=== PATIENT | female | born 1955 | race Caucasian/White ===

== ENCOUNTER 2021-07-31 22:33 | Emergency (ER) | payer MEDICARE, MEDICAID ==
[~2021-07-31] VITALS: Ht 172.7 cm; Wt 75.0 kg
[2021-07-31] MEDS ORDERED: morphine INJ 10 MG/ML 1ML (SYR OR VIAL) IVP STA (23:12)
[2021-07-31] MEDS ORDERED: ONDANSETRON 4 MG/2 ML (SDV) Z0FRAN IVP ONE (23:15)
--- NOTE | 2021-07-31 23:17 | ED Upper Extremity ---
General Stated Complaint: FALL/LEFT WRIST INJURY Source: patient, family Exam Limitations: no limitations History of Present Illness Date Seen by Provider: July 31, 2021 Time Seen by Provider: 23:05 Initial Comments Patient is a 65-year-old female who presents to the emergency department today with a chief complaint of left wrist injury. Patient was at a wedding and was trying to get between a couple of people who were arguing. She states she fell backwards on an outstretched arm injuring her wrist. She states it was immediately "packed in ice". She has not taken any medications for the pain. She did not injure herself anywhere else during the fall. Did not hit her head, did not have a loss of consciousness. She complains of significant pain to the left wrist. SHe is nauseated. last oral intake about 1 hour ago - drank a beer. All other review of systems reviewed and negative except as stated. Onset: just prior to arrival Severity: severe Pain/Injury Location: left wrist Method of Injury: fell Modifying Factors: Worse With Movement Allergies and Home Medications Allergies Coded Allergies: codeine (Verified Allergy, Unknown, 07/31/21) metronidazole (Verified Allergy, Unknown, 07/31/21) Patient Home Medication List Home Medication List Reviewed: Yes Hydrocodone/Acetaminophen (Hydrocodone-Acetamin 5-325 mg) 5 Mg-325 Mg Tablet, 1 TAB PO Q6H PRN for PAIN-MODERATE (5-7) Prescribed by: MEDINA CORREA on 08/01/21 0020 Ondansetron (Ondansetron Odt) 4 Mg Tab.rapdis, 4 MG PO Q8H PRN for nausea Prescribed by: MEDINA CORREA on 08/01/21 0020 Review of Systems Constitutional: see HPI EENTM: no symptoms reported Respiratory: no symptoms reported Cardiovascular: no symptoms reported Gastrointestinal: no symptoms reported Genitourinary: no symptoms reported Musculoskeletal: joint pain (left wrist) Skin: no symptoms reported All Other Systems Reviewed Negative Unless Noted: Yes Physical Exam Vital Signs Capillary Refill : Height, Weight, BMI Height: '" Weight: lbs. oz. kg; BMI Method: General Appearance: WD/WN, mild distress HEENT: PERRL/EOMI Cardiovascular: regular rate, rhythm Respiratory: lungs clear, normal breath sounds, no respiratory distress, no accessory muscle use Shoulder: normal inspection, non-tender, no evidence of injury, normal ROM Elbow/Forearm: normal inspection, non-tender, no evidence of injury, normal ROM Wrist: Yes asymmetry, Yes bone tenderness, Yes deformity, Yes limited ROM, Yes pain, Yes soft tissue tenderness, Yes swelling Hand: normal inspection, no evidence of injury (rings removed) Neurologic/Tendon: normal sensation, normal motor functions Neurologic/Psychiatric: alert, normal mood/affect, oriented x 3 Skin: normal color, warm/dry Progress/Results/Core Measures Results/Orders My Orders Orders - MEDINA CORREA MD Ed Iv/Invasive Line Start (07/31/21 23:12) Wrist, Left, 3 Views Or More (07/31/21 23:12) Morphine Injection (Morphine Injection (07/31/21 23:12) Ondansetron Injection (Zofran Injectio (07/31/21 23:15) Rx-Hydrocodone/Apap 5-325 Mg (Rx-Vicodin (08/01/21 00:30) Morphine Injection (Morphine Injection (08/01/21 00:20) Promethazine Injection (Phenergan Injec (08/01/21 00:30) Ns (Ivpb) (Sodium Chloride 0.9%) (08/01/21 00:30) Medications Given in ED Current Medications Medications Dose Ordered Sig/Ramona Route Start Time Stop Time Status Last Admin Dose Admin Ondansetron HCl 4 mg ONCE ONCE IVP 07/31/21 23:15 07/31/21 23:16 DC 07/31/21 23:18 4 MG Promethazine HCl 12.5 mg ONCE ONCE IVP 08/01/21 00:30 08/01/21 00:31 DC 08/01/21 00:30 12.5 MG Sodium Chloride 250 ml @ 999 mls/hr Q16M ONCE IV 08/01/21 00:30 08/01/21 00:45 DC 08/01/21 00:29 999 MLS/HR Progress Progress Note : Time: 00:17 Progress Note patient placed in a volar OCL short arm splint. Given a sling. Instructed on ice packs and elevation. Pain medications for home. referral information for Dr Vasquez who is regional medical director. return precautions given. Diagnostic Imaging Diagonstic Imaging: Xray Plain Films/CT/US/NM/MRI: other (wrist) Comments interpreted by me. impacted distal radius fracture Departure Impression Primary Impression: Closed fracture of distal end of radius Qualified Codes: S52.502A - Unspecified fracture of the lower end of left radius, initial encounter for closed fracture Disposition: HOME, SELF-CARE Condition: Stable Departure-Patient Inst. Decision time for Depature: 00:18 Referrals: NO,LOCAL PHYSICIAN (PCP) Primary Care Physician RADHA VASQUEZ MD Patient Instructions: Wrist Fracture (DC) Add. Discharge Instructions: Keep the splint in place until you follow-up with orthopedics. Ice packs over the course of the next 24 to 48 hours frequently throughout the day over the fracture site. The left wrist elevated to help decrease swelling. Pain medications every 6 hours as needed. These medications can cause co nstipation. As long as you are taking the prescribed pain medicines you should be on a daily stool softener. You can also take [id number] ibuprofen 600 mg every 6 hours with food as needed for pain/inflammation and swelling. Please call Dr. Vasquez's office first thing Monday morning for a follow-up appointment this week. Return to the emergency department for any new, concerning or emergent complaints. Scripts Ondansetron (Ondansetron Odt) 4 Mg Tab.rapdis 4 MG PO Q8H PRN for nausea, #20 TAB Prov: MEDINA CORREA MD 08/01/21 Hydrocodone/Acetaminophen (Hydrocodone-Acetamin 5-325 mg) 5 Mg-325 Mg Tablet 1 TAB PO Q6H PRN for PAIN-MODERATE (5-7), #20 TAB Prov: MEDINA CORREA MD 08/01/21 Copy Copies To 1: RADHA VASQUEZ MD, KATHRYN M MD July 31, 2021 23:17
[2021-08-01] MEDS ORDERED: ACHD5005 PO (00:19)
[2021-08-01] MEDS ORDERED: ONDA4TAB11 PO (00:20)
[2021-08-01] MEDS ORDERED: morphine INJ 10 MG/ML 1ML (SYR OR VIAL) IVP STA (00:20)
[2021-08-01] MEDS ORDERED: PROMETHAZINE INJ 25 MG/ML (PHENERGAN) AMP IVP ONE (00:30)
[2021-08-01] MEDS ORDERED: NS (IVPB) 250 ML IV ONE (00:30)
[2021-08-01 01:07] VITALS: BP 124/81
--- NOTE | 2021-08-01 06:51 | Diagnostic Imaging Report ---
History: Fall on the left wrist and hand, left wrist pain TECHNIQUE: 3 views of the left wrist COMPARISON: None FINDINGS: There is a comminuted intra-articular fracture of the distal left radius with mild posterior angulation and displacement. There is a minimally displaced avulsion fracture at the tip of the ulnar stomach process. Alignment otherwise appears normal. There is soft tissue swelling about the left wrist. IMPRESSION: 1. Comminuted, mildly displaced and angulated intra-articular fracture of the distal left radius. 2. Minimally displaced fracture of the ulnar styloid process. Dictated by: Dictated on workstation # [id number]
== END 2021-08-01 01:22 | disposition home or self-care (01) ==
LOC: ER 22:37
DX: S52.572A Other intraarticular fracture of lower end of left radius, initial encounter for closed fracture (principal); S52.612A Displaced fracture of left ulna styloid process, initial encounter for closed fracture; W18.30XA Fall on same level, unspecified, initial encounter
CPT/HCPCS: 29125; 73110

== ENCOUNTER → 2021-08-04 | Outpatient (CLI) | payer MEDICARE, MEDICAID ==
[~2021-08-04] MED LIST: ACHD5005 PO; ONDA4TAB11 PO
== END ==
LOC: ORTHO 13:14
PROVIDERS: ATTEND Orthopaedic Surgery
DX: S52.502A Unspecified fracture of the lower end of left radius, initial encounter for closed fracture (principal); I10 Essential (primary) hypertension; E11.9 Type 2 diabetes mellitus without complications; X58.XXXA Exposure to other specified factors, initial encounter
CPT/HCPCS: 29075; G0463

== ENCOUNTER 2021-08-17 10:14 | Outpatient (CLI) | payer MEDICARE, MEDICAID ==
[~2021-08-17] VITALS: Ht 167.6 cm; Wt 74.4 kg
[~2021-08-17 10:14] MED LIST changes: -ASPI-999 PO; -CHOL200041 PO; -CRAN200C PO; -ESTR1TAB27 PO; -LISI20TA26 PO; -METF-397 PO; -OMEP40CA6 PO; -OXYC-556 PO; -PREN-98 PO
[2021-08-17] MEDS ORDERED: ESTR1TAB27 PO (12:50)
[2021-08-17] MEDS ORDERED: ASPI-999 PO (12:50)
[2021-08-17] MEDS ORDERED: LISI20TA26 PO (12:50)
[2021-08-17] MEDS ORDERED: PREN-98 PO (12:50)
[2021-08-17] MEDS ORDERED: OXYC-556 PO (12:50)
[2021-08-17] MEDS ORDERED: OMEP40CA6 PO (12:50)
[2021-08-17] MEDS ORDERED: CHOL200041 PO (12:50)
[2021-08-17] MEDS ORDERED: METF-397 PO (12:50)
[2021-08-17] MEDS ORDERED: CRAN200C PO (12:50)
== END 2021-08-17 13:30 | disposition home or self-care (01) ==
LOC: PREOP 10:14
PROVIDERS: ATTEND Orthopaedic Surgery
DX: Z01.818 Encounter for other preprocedural examination (principal)

== ENCOUNTER → 2021-08-17 | Outpatient (CLI) | payer MEDICARE, MEDICAID ==
[~2021-08-17] MED LIST changes: +ASPI-999 PO; +CHOL200041 PO; +CRAN200C PO; +ESTR1TAB27 PO; +LISI20TA26 PO; +METF-397 PO; +OMEP40CA6 PO; +OXYC-556 PO; +PREN-98 PO
--- NOTE | 2021-08-17 10:47 | Diagnostic Imaging Report ---
INDICATION: Left wrist injury. AP and lateral views of left wrist are obtained with comparison made study of earlier in the day. Subacute distal radial fracture is again identified with mild overriding of distal fracture fragments. This does extend into the distal radial articular surface with mild dorsal angulation of major distal radial fracture fragment. Mildly displaced ulnar styloid process fracture noted. No other significant change is seen. IMPRESSION: Mild overriding and angulation of comminuted intra-articular distal radial fracture with overlying fiberglass cast. Dictated by: Dictated on workstation # [id number]
--- NOTE | 2021-08-17 10:54 | Diagnostic Imaging Report ---
INDICATION: Left wrist fracture follow-up AP, oblique, and lateral views of the left wrist are obtained and compared to 07/31/2021. Comminuted distal radial intra-articular fracture appears in stable alignment. Ulnar styloid avulsion again noted. Overlying cast in place. IMPRESSION: Stable alignment of left wrist fractures with overlying cast in place. Dictated by: Dictated on workstation # [id number]
== END ==
LOC: ORTHO 09:00
PROVIDERS: ATTEND Orthopaedic Surgery
DX: Z47.89 Encounter for other orthopedic aftercare (principal); Z98.890 Other specified postprocedural states
CPT/HCPCS: 73100; 73110; G0463; 99213

== ENCOUNTER 2021-08-20 06:12 | Day surgery (SDC) | payer MEDICARE, MEDICAID ==
[~2021-08-20] VITALS: Ht 167 cm; Wt 74.4 kg
[2021-08-20] VITALS (11 sets, daily range): BP systolic 107–163; BP diastolic 59–106
[~2021-08-20 06:12] MED LIST changes: +ASPI-999 PO; +CHOL200041 PO; +CRAN200C PO; +ESTR1TAB27 PO; +LISI20TA26 PO; +METF-397 PO; +OMEP40CA6 PO; +OXYC-556 PO; +PREN-98 PO
[2021-08-20] MEDS ORDERED: ceFAZolin INJECTION 1,000 MG VIAL IV ONE (06:30)
[2021-08-20] MEDS ORDERED: BUPIVACAINE 0.25% 10 ML (SENSORCAINE) VIAL ONE (06:51)
[2021-08-20] MEDS: LACTATED RINGERS 1,000 ML IV PRN ×2 (07:00→08:34)
[2021-08-20] MEDS ORDERED: ONDANSETRON 4 MG/2 ML (SDV) Z0FRAN ONE (07:05)
[2021-08-20] MEDS ORDERED: LIDOCAINE PF 2% 5 ML (XYLOCAINE) VIAL ONE (07:05)
[2021-08-20] MEDS ORDERED: fentaNYL INJ 100 MCG/2 ML AMP ONE (07:05)
[2021-08-20] MEDS ORDERED: MIDAZOLAM 2 MG/2 ML (VERSED) VIAL ONE (07:05)
[2021-08-20] MEDS ORDERED: proPOfol 200 MG/20 ML (DIPRIVAN) VIAL IV ONE (07:05)
[2021-08-20] MEDS ORDERED: fentaNYL INJ 100 MCG/2 ML AMP IVP ONE (07:15)
--- NOTE | 2021-08-20 07:17 | Progress Note-Pre Operative ---
Pre-Operative Progress Note H&P Reviewed The H&P was reviewed, patient examined and no changes noted. Date Seen by Provider: Aug 20, 2021 Time Seen by Provider: 07:10 Date H&P Reviewed: Aug 20, 2021 Time H&P Reviewed: 07:10 Pre-Operative Diagnosis: Left Intraarticular Distal Radius Fracture RADHA LUONG MD Aug 20, 2021 07:17
[2021-08-20] MEDS ORDERED: SEVOFLURANE (ULTANE) 15 ML INHAL SOLN ONE ×4 (07:35→08:28)
[2021-08-20] MEDS ORDERED: HYDROmorphone 2 MG/ML VIAL (DILAUDID) ONE (08:15)
[2021-08-20] MEDS ORDERED: NEO/POLY/BAC (NEOSPORIN) OINT 15 GM TUBE ONE (08:36)
--- NOTE | 2021-08-20 09:02 | Operative Report - Ortho ---
Operative Report Surgeon (s)/Riprap Placing Supervisor (s) Surgeon RADHA LUONG MD Riprap Placing Supervisor n/a Pre-Operative Diagnosis Left Intraarticular Distal Radius Fracture Post-Operative Diagnosis same Operative Report Date of Procedure: Aug 20, 2021 Name of Procedure Performed: Open Reduction and Internal Fixation of Left Intraarticular Distal Radius Fracture Description & Findings After obtaining informed consent, the patient was taken to the operating room. General anesthesia was induced. Surgical timeout was taken. The left upper extremity was prepped and draped in the usual sterile fashion. Incision was made over the volar side of the wrist. Radial artery was identified and protected. Fascia was divided, retractors were placed, and the pronator was reflected. Fracture site was exposed. Fracture site was mobilized. Reduction maneuver was performed using traction, wrist flexion, and ulnar deviation. A [employer] distal radius plate was selected and position against the bone using C- arm. A nonlocking screw was placed in the slot of the plate. A nonlocking screw was then placed in the most distal row of the plate. Plate position and reduction were confirmed in the AP and lateral planes. An ulnar sided locking screw was placed in the distal row followed by the ulnar sided locking screw in the 2nd row. C-arm was once again utilized and noted to have good position of hardware with maintained reduction of fracture. 2 locking screws were then placed in the radial styloid position. 2 locking screws were placed in the diaphyseal portion of the plate. Images were obtained in the AP, and lateral and demonstrated adequate reduction of the fracture with reduction of the intrarticular segment, and appropriate position of the hardware. Final images were saved on the hard drive of the C-arm. Wound was irrigated with normal saline. Subcutaneous layer was closed with 3-0 vicryl. Skin was closed with 4-0 nylon. Wound was injected locally with marcaine. Arm was dressed with xeroform, 4x4s, webril, volar splint, and VINI wrap. Patient tolerated the procedure well and was stable to the recovery room. Anesthesia Type General Estimated Blood Loss Less than 25 mL Specimen(s) collected/removed None RADHA LUONG MD Aug 20, 2021 09:02
[2021-08-20] MEDS ORDERED: OXYC-556 PO (09:05)
[2021-08-20] MEDS ORDERED: morphine INJ 10 MG/ML 1ML (SYR OR VIAL) IVP ONE (09:15)
[2021-08-20] MEDS ORDERED: HYDROmorphone 2 MG/ML VIAL (DILAUDID) IV ONE (09:15)
[2021-08-20] MEDS ORDERED: ONDANSETRON 4 MG/2 ML (SDV) Z0FRAN IVP PRN (09:15)
--- NOTE | 2021-08-20 09:38 | Anesthesia-General Post-Op ---
General Patient Condition Mental Status/LOC: Same as Preop Cardiovascular: Satisfactory Nausea/Vomiting: Absent Respiratory: Satisfactory Pain: Controlled Complications: Absent Post Op Complications Complications None Follow Up Care/Instructions Patient Instructions None needed. Anesthesia/Patient Condition Patient Condition Patient is doing well in PACU, C/O Lt wrist pain which is to be expected -- not uncontrollable, stable vital signs, no apparent adverse anesthesia problems. No complications reported per nursing. RONNY LUONG DO Aug 20, 2021 09:38
[2021-08-20] MEDS ORDERED: oxyCODONE/APAP 10/325MG (PERCOCET 10) TABLET PO ONE ×2 (10:10→10:15)
== END 2021-08-20 11:25 | disposition home or self-care (01) ==
LOC: SDC 06:12
PROVIDERS: ATTEND Orthopaedic Surgery
DX: S52.572D Other intraarticular fracture of lower end of left radius, subsequent encounter for closed fracture with routine healing (principal); X58.XXXD Exposure to other specified factors, subsequent encounter
CPT/HCPCS: 82947; 87081

== ENCOUNTER → 2021-08-31 | Outpatient (CLI) | payer MEDICARE, MEDICAID | LOC: ORTHO 09:13 | PROVIDERS: ATTEND Orthopaedic Surgery | DX: Z47.89 Encounter for other orthopedic aftercare (principal) ==

== ENCOUNTER → 2021-09-21 | Outpatient (CLI) | payer MEDICARE, MEDICAID ==
--- NOTE | 2021-09-21 09:21 | Diagnostic Imaging Report ---
INDICATION: Followup left wrist surgery. TIME OF EXAM: 9:03 AM. COMPARISON: Correlation is made with prior radiographs from 08/17/2021. FINDINGS: Three views of the left wrist demonstrate a volar plate and numerous screws transfixing the distal radius fracture. The alignment is normal. The fracture line does remain partially visible. There also appears to be a fracture of the ulnar styloid. The carpus and metacarpals are intact. IMPRESSION: Post traumatic and post surgical changes, as described. The fracture lines do remain partially visible. Hardware is intact. Dictated by: Dictated on workstation # [id number]
== END ==
LOC: ORTHO 08:54
PROVIDERS: ATTEND Orthopaedic Surgery
DX: Z09 Encounter for follow-up examination after completed treatment for conditions other than malignant neoplasm (principal); Z98.890 Other specified postprocedural states
CPT/HCPCS: 73110

== ENCOUNTER → 2021-10-26 | Outpatient (CLI) | payer MEDICARE, MEDICAID ==
--- NOTE | 2021-10-26 14:48 | Diagnostic Imaging Report ---
WRIST, LEFT, 3 VIEWS OR MORE INDICATION: Radius fracture follow-up COMPARISON: 09/21/2021 TECHNIQUE: 3 views of the left wrist. FINDINGS: The distal radial fracture has healed. Volar interlocking plate and screw fixation is unchanged in alignment and appearance. No loosening of the fixation screws. No incongruency of the articular surface of the distal radius. Nonunited fracture fragments of the ulnar styloid are stable. IMPRESSION: Distal radial fracture has healed. No hardware complication. Dictated by: Dictated on workstation # [id number]
== END ==
LOC: ORTHO 09:08
PROVIDERS: ATTEND Orthopaedic Surgery
DX: S52.502D Unspecified fracture of the lower end of left radius, subsequent encounter for closed fracture with routine healing (principal); X58.XXXD Exposure to other specified factors, subsequent encounter
CPT/HCPCS: 73110

== ENCOUNTER → 2021-11-30 | Outpatient (CLI) | payer MEDICARE, MEDICAID | LOC: ORTHO 14:01 | PROVIDERS: ATTEND Orthopaedic Surgery | DX: Z47.89 Encounter for other orthopedic aftercare (principal); E11.9 Type 2 diabetes mellitus without complications; I10 Essential (primary) hypertension; Z98.890 Other specified postprocedural states ==